=== PATIENT | female | born 1970 | race African-American/Black ===

== ENCOUNTER 2023-09-19 21:33 | Emergency (ER) | payer SELFPAY ==
[~2023-09-19] VITALS: Ht 167.6 cm; Wt 95.0 kg
[2023-09-19 21:38] VITALS: BP 127/78; PULSE 64; RESP 16; TEMP 98.4; O2SAT 98
[2023-09-19] MEDS ORDERED: FAMOTIDINE 20MG/2ML VIAL IV STA (21:52)
[2023-09-19] MEDS ORDERED: ONDANSETRON HCL 4MG/2ML INJ IV STA (21:52)
[2023-09-19] MEDS ORDERED: MAGNESIUM/ALUMINUM HYDROXIDE/SIMETHICONE 30ML UDC PO STA (21:52)
[2023-09-19] MEDS ORDERED: SODIUM CHLORIDE 0.9% 1,000 ML IV ONE (22:00)
== END 2023-09-20 00:27 | disposition left against medical advice (07) ==
LOC: ER 21:33 → EDBEDREQ 23:48 → EDBEDREQTM 23:48 → ER 09-20 00:27 → CANBEDREQ 09-21 20:15
DX: R10.9 Unspecified abdominal pain (principal); R11.2 Nausea with vomiting, unspecified
CPT/HCPCS: 99283; 93005; J7030